=== PATIENT | male | born 1950 ===

== ENCOUNTER 2017-03-20 07:30 | Emergency (ER) | payer OTHER, MEDICARE ==
[2017-03-20 07:35] VITALS: BP 167/69; PULSE 74; RESP 20; TEMP 98.2; O2SAT 100; BMI 27.1
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
[2017-03-20] MEDS ORDERED: Lidocaine 1% Inj (20ml) ONE (10:48)
== END 2017-03-20 12:09 | disposition home or self-care (01) ==
LOC: H.ER 07:30
DX: S01.81XA Laceration without foreign body of other part of head, initial encounter (principal); W22.8XXA Striking against or struck by other objects, initial encounter; Y99.0 Civilian activity done for income or pay